=== PATIENT | female | born 1990 | race Caucasian/White ===

== ENCOUNTER 2016-10-01 14:51 | Emergency (ER) | payer MEDICAID ==
[~2016-10-01] VITALS: Ht 162.6 cm; Wt 54.1 kg
[~2016-10-01 14:51] MED LIST: ALEVE 220MG220 MG PO; ALLEGRA30 MG PO; ALLEGRA60 MG PO; AMBIEN10 MG PO; ANTIBIOTIC UNKNOWN; ASMANEX TW110 MCG/AC; ASMANEX TW110 MCG/AC IH; CETIRIZINE10 MG PO; LANSOPRAZOLE30 MG PO; LEXAPRO 10MG10 MG PO; LORTAB 2.5/5001 TAB PO; LUTERA 0.02 MG-1 TAB PO; MELOXICAM7.5 MG PO; NORCO 325 MG-51 TAB; PERCOCET 325 MG1 TA2 PO; PHENERGAN 25 TA25 MG PO; PRENATAL1 TA1; PROVENTIL0.09 MG/A1 IH; SINGULAIR10 MG PO; VENTOLIN0.09 MG IH; ZYRTEC 10MG; [UNRECOGNIZED DRUG - REMARK]; allegra; pain med
[2016-10-01 14:54] VITALS: TEMP 97.9
[2016-10-01] MEDS ORDERED: ZYRTEC 10MG10 MG PO (14:58)
[2016-10-01] MEDS ORDERED: LYRICA 100MG C100 M1 PO (14:58)
[2016-10-01] MEDS ORDERED: SINGULAIR 110 MG/TAB PO (14:59)
[2016-10-01] MEDS ORDERED: PRENATAL PO (14:59)
[2016-10-01 15:29] VITALS: BP 113/74; PULSE 75
[2016-10-01 15:31] LABS: PH 6 (5-8); URINE APPEARANCE Clear; URINE BACTERIA Rare /hpf; URINE BILIRUBIN Negative (NEGATIVE); URINE BLOOD Negative (NEGATIVE); URINE COLOR Amber; URINE GLUCOSE Negative (NEGATIVE); URINE KETONE 1+ (NEGATIVE)
[2016-10-01 15:42] LABS: ADJUSTED CALCIUM 9.2 mg/dL (8.4-10.2); ALBUMIN 4.1 gm/dL (3.5-5.0); BILIRUBIN,TOTAL 1.1 mg/dL (0.0-1.0); CALCIUM 9.3 mg/dL (8.4-10.2); CREATININE, serum 0.58 mg/dL (0.52-1.25); POTASSIUM 3.8 mmol/L (3.4-5.0); TOTAL PROTEIN 7.7 gm/dL (6.4-8.2)
[2016-10-01] MEDS ORDERED: PHENERGAN25 MG RC (16:53)
== END 2016-10-01 17:06 | disposition home or self-care (01) ==
LOC: COL.ER 14:51
PROVIDERS: Nurse Practitioner
DX: O21.9 Vomiting of pregnancy, unspecified (principal); O99.89 Other specified diseases and conditions complicating pregnancy, childbirth and the puerperium; M19.90 Unspecified osteoarthritis, unspecified site; O99.511 Diseases of the respiratory system complicating pregnancy, first trimester; J45.909 Unspecified asthma, uncomplicated; Z3A.12 12 weeks gestation of pregnancy; Z98.890 Other specified postprocedural states
CPT/HCPCS: J2550; J7030

== ENCOUNTER 2016-11-23 16:15 | Emergency (ER) | payer MEDICAID ==
[~2016-11-23] VITALS: Ht 162.6 cm; Wt 57.8 kg
[~2016-11-23 16:15] MED LIST changes: +LYRICA 100MG C100 M1 PO; +PHENERGAN25 MG RC; +PRENATAL PO; +SINGULAIR 110 MG/TAB PO; +ZYRTEC 10MG10 MG PO
[2016-11-23 16:18] VITALS: BP 113/61; TEMP 98.5
[2016-11-23] MEDS ORDERED: ZOFRAN 4MG T4 MG/TAB PO (16:22)
[2016-11-23 18:17] VITALS: PULSE 71
== END 2016-11-23 18:18 | disposition home or self-care (01) ==
LOC: COL.ER 16:15
DX: O9A.212 Injury, poisoning and certain other consequences of external causes complicating pregnancy, second trimester (principal); S43.401A Unspecified sprain of right shoulder joint, initial encounter; S20.211A Contusion of right front wall of thorax, initial encounter; Z3A.20 20 weeks gestation of pregnancy; V48.6XXA Car passenger injured in noncollision transport accident in traffic accident, initial encounter; Y92.410 Unspecified street and highway as the place of occurrence of the external cause

== ENCOUNTER 2017-04-12 16:45 | Inpatient (IN) | payer BC, MEDICAID ==
[~2017-04-12] VITALS: Ht 162.6 cm; Wt 63.6 kg
[2017-04-12] VITALS (14 sets, daily range): BP systolic 106–135; BP diastolic 55–85; PULSE 72–108; TEMP 97.7–98.6
[~2017-04-12 16:45] MED LIST changes: +FERROUSGLUC256MG; +ZOFRAN 4MG T4 MG/TAB PO; +ZOLOFT 100MG100 MG PO
[2017-04-12 17:33] LABS: BASO # 0.1 (0.0-0.2); BASO % 0.4 % (0.0-2.0); EOS # 0.1 (0.0-0.7); EOS % 0.4 % (0-4.0); GRAN # 12.7 (1.4-6.5); GRAN % 77.6 % (42.2-75.2); LYMPH # 2.3 (1.2-3.4); LYMPH % 13.8 % (20.0-51.0); MEAN CELL VOLUME 80 fl (80.0-100.0); MEAN CORPUSCULAR HGB CONC 33 g/dl (33.0-37.0); MEAN PLATELET VOLUME 11.4 fl (7.4-10.4); MONO # 1.2 (0.1-0.6); MONO % 7.1 % (1.7-9.3); PLATELET COUNT 207 K/mm3 (130-400); RED BLOOD COUNT 4.12 M/mm3 (4.10-5.30); REDCELL DISTRIBUTION WIDTH-CV 14.3 % (11.5-14.5)
[2017-04-12 17:35] LABS: HEMATOCRIT 33.1 % (37.0-47.0); HEMOGLOBIN 10.9 g/dl (12.5-16.0); MEAN CORPUSCULAR HEMOGLOBIN 26 pg (27.0-31.0)
[2017-04-13 02:25] VITALS: BP 103/55; PULSE 71; TEMP 98
[2017-04-13 05:50] VITALS: BP 107/72; PULSE 67; TEMP 97.8
[2017-04-13 07:44] VITALS: BP 113/65; PULSE 76; TEMP 97.6
[2017-04-13 16:32] VITALS: BP 114/68; PULSE 76; TEMP 98.2
[2017-04-13 20:01] VITALS: BP 109/60; PULSE 67; TEMP 97.9
[2017-04-14 07:18] VITALS: BP 118/72; PULSE 68; TEMP 98.1
[2017-04-14] MEDS ORDERED: IBU600 MG PO (09:19)
== END 2017-04-14 10:30 | disposition home or self-care (01) | DRG 775 ==
LOC: LDRO 16:45 → LDR 17:03 → OB 17:03
PROVIDERS: Obstetrics & Gynecology
PROC: 10E0XZZ Delivery of Products of Conception, External Approach (ICD-10-PCS; principal; 2017-04-12)
PROC: 0HQ9XZZ Repair Perineum Skin, External Approach (ICD-10-PCS; 2017-04-12)
DX: O77.0 Labor and delivery complicated by meconium in amniotic fluid (principal); O70.0 First degree perineal laceration during delivery; Z3A.39 39 weeks gestation of pregnancy; Z37.0 Single live birth
CPT/HCPCS: J2590; J7120

== ENCOUNTER → 2017-10-25 | Outpatient (CLI) | payer MEDICAID ==
[~2017-10-25] MED LIST changes: +IBU600 MG PO
== END ==
LOC: COL.RAD 08:00
DX: D64.9 Anemia, unspecified (principal); K59.00 Constipation, unspecified; R19.7 Diarrhea, unspecified; R10.9 Unspecified abdominal pain
CPT/HCPCS: A9541

== ENCOUNTER → 2018-01-19 | Outpatient (CLI) | payer MEDICAID | LOC: COL.RAD 01-12 08:15 | DX: K59.00 Constipation, unspecified (principal); R19.7 Diarrhea, unspecified; R10.9 Unspecified abdominal pain ==

== ENCOUNTER 2018-02-28 07:06 | Emergency (ER) | payer MEDICAID ==
[~2018-02-28] VITALS: Ht 165.1 cm; Wt 50.0 kg
[2018-02-28 07:10] VITALS: TEMP 98.3
[2018-02-28] MEDS ORDERED: PRIL40 PO (07:24)
[2018-02-28] MEDS ORDERED: BENTYL 20MG20 MG/TAB PO (07:24)
[2018-02-28] MEDS ORDERED: PHENERGAN25 MG RC (07:25)
[2018-02-28] MEDS ORDERED: CELEXA10 MG PO (07:25)
[2018-02-28 07:35] LABS: COLLECTION METHOD CLEAN CATCH
[2018-02-28 07:48] LABS: MUCOUS Present /lpf; PH 5 (5-8); SQUAMOUS EPITHELIAL 0-2 /hpf; URINE APPEARANCE Hazy; URINE BACTERIA None Seen /hpf; URINE BILIRUBIN Negative (NEGATIVE); URINE BLOOD Negative (NEGATIVE); URINE COLOR Amber; URINE GLUCOSE Negative (NEGATIVE); URINE KETONE Negative (NEGATIVE); URINE LEUKOCYTE ESTERASE Negative (NEGATIVE); URINE NITRATE Negative (NEGATIVE); URINE PROTEIN(semi-quant) 1+ (NEGATIVE); URINE RBC 0-2 /hpf; URINE UROBILINOGEN Negative (NEGATIVE)
[2018-02-28 07:48] LABS: HEMATOCRIT 49.9 % (37.0-47.0); HEMOGLOBIN 16.2 g/dl (12.5-16.0); MEAN CELL VOLUME 85 fl (80.0-100.0); MEAN CORPUSCULAR HEMOGLOBIN 28 pg (27.0-31.0); MEAN CORPUSCULAR HGB CONC 33 g/dl (33.0-37.0); PLATELET COUNT 396 K/mm3 (130-400); RED BLOOD COUNT 5.87 M/mm3 (4.10-5.30); REDCELL DISTRIBUTION WIDTH-CV 13.3 % (11.5-14.5)
[2018-02-28 08:00] LABS: BAND 34 % (0-10); BASOPHIL 1 % (0-2); LYMPHOCYTE 15 % (20.0-51.0); NEUTROPHILS 38 % (42.0-75.2); PLATELET ESTIMATE NORMAL (NORMAL)
[2018-02-28 08:01] LABS: ALBUMIN 4.9 gm/dL (3.5-5.0); BILIRUBIN,TOTAL 1.1 mg/dL (0.0-1.0); CALCIUM 9.7 mg/dL (8.4-10.2); CREATININE, serum 0.74 mg/dL (0.52-1.25); MAGNESIUM 1.4 mg/dL (1.6-2.3); PHOSPHOROUS 2.2 mg/dL (2.5-4.5); TOTAL PROTEIN 8.6 gm/dL (6.4-8.2)
[2018-02-28] MEDS ORDERED: PHENERGAN 25 TA25 MG PO (09:42)
[2018-02-28] MEDS ORDERED: ZOFRAN ODT4 MG PO (09:42)
[2018-02-28 11:45] VITALS: BP 111/61; PULSE 97
== END 2018-02-28 12:00 | disposition home or self-care (01) ==
LOC: COL.ER 07:06
PROVIDERS: Emergency Medicine
DX: R11.10 Vomiting, unspecified (principal); R19.7 Diarrhea, unspecified
CPT/HCPCS: J2550; J3010; J3475; J7030; Q9967

== ENCOUNTER → 2018-03-15 | Outpatient (CLI) | payer MEDICAID ==
[~2018-03-15] MED LIST changes: +BENTYL 20MG20 MG/TAB PO; +CELEXA10 MG PO; +PRIL40 PO; +ZOFRAN ODT4 MG PO
== END ==
LOC: LAC 10:14
DX: Z39.1 Encounter for care and examination of lactating mother (principal); Z71.89 Other specified counseling

== ENCOUNTER 2019-04-01 02:09 | Inpatient (IN) | payer MEDICAID ==
[2019-04-01] VITALS (28 sets, daily range): BP systolic 88–122; BP diastolic 53–80; PULSE 64–83; TEMP 97.5–98.4
[~2019-04-01] VITALS: Ht 162.6 cm; Wt 64.1 kg
--- NOTE | 2019-04-01 02:20 | NUR ---
G4L3 at 38 weeks and 5 days arrives to unit with complaint of contractions every 2-3 minutes. Pt states contractions started around 2200 and have been increasing in intensity. Pt reports good movement, denies LOF or vaginal bleeding. Pt denies headaches, blurry vision, or RUQ pain. Pt oriented to room, bed in low and locked position, call light within reach. Pt changed into gown. US and toco explained and applied. Plan of care reviewed with patient and spouse. Vital signs obtained. Admission assessment started. SVE 4/70/-3 membranes intact.
--- NOTE | 2019-04-01 03:30 | NUR ---
SVE unchanged from previous exam. Pt silvia every 2-3 minutes on monitor. Pt reports attempting warm bath and ambulation at home. Pt visibly uncomfortable and states she wont be able to sleep through contractions. Discussed plan of care options at this time. Pt wishing to stay for another hour for additional labor check.
--- NOTE | 2019-04-01 03:32 | NUR ---
Category 1 FHR tracing obtained. Pt wishing to ambulate in hallway. Monitors removed.
--- NOTE | 2019-04-01 04:30 | NUR ---
SVE /-3. Pt reports contractions are getting stronger. Visibly more uncomfortable. See physician notification.
--- NOTE | 2019-04-01 05:00 | NUR ---
18G IV started in right forearm. Admission labs obtained off IV start. Lactated Ringers infusing to gravity. 0505 - Consents reviewed and signed with patient. All questions answered. 0510 - Pt wanting to ambulate in hallway. Category 1 FHR tracing obtained, monitors removed. Plan of care reviewed with patient.
[2019-04-01 05:57] LABS: BASO # 0.1 (0.0-0.2); BASO % 0.4 % (0.0-2.0); EOS # 0.1 (0.0-0.7); EOS % 0.8 % (0-4.0); GRAN # 9.5 (1.4-6.5); GRAN % 66.8 % (42.2-75.2); HEMOGLOBIN 10.6 g/dl (12.5-16.0); LYMPH # 3.2 (1.2-3.4); LYMPH % 22.8 % (20.0-51.0); MEAN CELL VOLUME 81 fl (80.0-100.0); MEAN CORPUSCULAR HEMOGLOBIN 26 pg (27.0-31.0); MEAN CORPUSCULAR HGB CONC 32 g/dl (33.0-37.0); MEAN PLATELET VOLUME 11.4 fl (7.4-10.4); MONO # 1.2 (0.1-0.6); MONO % 8.4 % (1.7-9.3); PLATELET COUNT 207 K/mm3 (130-400); RED BLOOD COUNT 4.13 M/mm3 (4.10-5.30); REDCELL DISTRIBUTION WIDTH-CV 13.8 % (11.5-14.5)
--- NOTE | 2019-04-01 06:00 | NUR ---
Pt requesting epidural at this time. Wallace Laughlin CLINICAL STUDY MANAGER notified, will come to hospital.
[2019-04-01 06:01] LABS: HEMATOCRIT 33.6 % (37.0-47.0)
--- NOTE | 2019-04-01 09:18 | NUR ---
Dr. Mckenna to pt bedside. Discussed plan to break bag of water, pt agrees. AROM at 0920, SVE per provider /0. 28 - SVE /+[address] RN[address] Dr[address] Mckenna called to bedside. 928 - Dr. Mckenna to pt bedside. Pt prepped for delivery. Borges removed. Pt started pushing at 0932. Viable male delivered via at 0933 and placed on mother's abdomen by Dr. Mckenna. Apgars 9//9. Care of infant transferred to Rich Patel RN of nursery. 935 - Spontaneous delivery of placenta by Dr. Mckenna. Pitocin bolus started per protocol. First degree laceration noted, no sutures neede per physician. Fundus firm at the umbilicus, bleeding WNL at this time. Pericare provided, ice pack placed, pt positioned for comfort.
--- NOTE | 2019-04-01 09:45 | NUR ---
0945 - Large amount of free flow and several small clots noted with fundal massage. Resolved with continued massage, fundus firm. Dr. Mckenna on unit and notified. Orders to continue monitoring at this time. 1000 - Moderate to large amount of free flow with 1 quarter size clot noted. Dr. Mckenna notified, orders received for IM Methergine. Medication review with pt, see EMAR. New pad placed. 1015 - Vaginal bleeding WNL at this time.
[2019-04-02] VITALS: BP 108/62; PULSE 64; TEMP 97.9
[2019-04-02 04:00] VITALS: BP 104/67; PULSE 78; TEMP 98
[2019-04-02 09:16] VITALS: BP 104/67; PULSE 81
[2019-04-02] MEDS ORDERED: IBU600 MG PO (10:52)
== END 2019-04-02 13:10 | disposition home or self-care (01) | DRG 807 ==
LOC: LDRO 02:09 → LDR 02:31 → LDRO 04:40 → LDR 04:41 → OB 11:57
PROVIDERS: Student in an Organized Health Care Education/Training Program; ADMIT Obstetrics & Gynecology
PROC: 10E0XZZ Delivery of Products of Conception, External Approach (ICD-10-PCS; principal; 2019-04-01)
PROC: 0HQ9XZZ Repair Perineum Skin, External Approach (ICD-10-PCS; 2019-04-01)
PROC: 10907ZC Drainage of Amniotic Fluid, Therapeutic from Products of Conception, Via Natural or Artificial Opening (ICD-10-PCS; 2019-04-01)
DX: O99.52 Diseases of the respiratory system complicating childbirth (principal); Z37.0 Single live birth; O70.0 First degree perineal laceration during delivery; Z3A.38 38 weeks gestation of pregnancy; J45.909 Unspecified asthma, uncomplicated
CPT/HCPCS: J2210; J2590; J2795; J7120